=== PATIENT | female | born 1985 | race African-American/Black ===

== ENCOUNTER 2020-10-26 10:25 | Emergency (ER) | payer MEDICAID, OTHER ==
[~2020-10-26] VITALS: Ht 160 cm; Wt 76.0 kg
[2020-10-26 10:30] VITALS: BP 123/78
[2020-10-26 11:28] LABS: CLARITY URINE TURBID (CLEAR); COLOR URINE YELLOW (YELLOW); KETONES URINE 1+ (NEGATIVE); LEUKOCYTE ESTERASE URINE 3+ (NEGATIVE); NITRITE URINE NEGATIVE (NEGATIVE); OCCULT BLOOD URINE 3+ (NEGATIVE); PH URINE 6.5 (4.5-8.0); PROTEIN URINE 1+ (NEGATIVE); SPECIFIC GRAVITY URINE 1.018 (1.005-1.030); UROBILINOGEN URINE 0.2 E.U./dL (0.2-1.0)
[2020-10-26] MEDS ORDERED: AZITHROMYCIN 500 MG TABLET PO NR (13:00)
[2020-10-26] MEDS ORDERED: CEFTRIAXONE SODIUM 500 MG/VIAL IM NR (13:00)
[2020-10-26] MEDS ORDERED: LIDOCAINE HCL 1% 20ML VIAL (Pyxis) INJ INFIL NR (13:00)
[2020-10-26] MEDS ORDERED: CLOT21CR4 VG (13:20)
[2020-10-26] MEDS ORDERED: METR-167 PO (13:20)
[2020-10-30 16:39] LABS: NEISSERIA GONORRHOEAE NAA Negative (Negative)
== END 2020-10-26 13:45 | disposition home or self-care (01) ==
LOC: ER 10:37
DX: N76.0 Acute vaginitis (principal); N72 Inflammatory disease of cervix uteri
CPT/HCPCS: 81003; 81025; 87086; 87210; 87491; 87591; 96372; 99283; J0696; J3490

== ENCOUNTER 2020-11-04 20:00 | Emergency (ER) | payer OTHER ==
[~2020-11-04] VITALS: Ht 157.5 cm; Wt 77.0 kg
[~2020-11-04 20:00] MED LIST: CLOT21CR4 VG; METR-167 PO
[2020-11-04 21:30] VITALS: BP 120/67
== END 2020-11-04 22:27 | disposition home or self-care (01) ==
LOC: ER 20:00
DX: T19.2XXA Foreign body in vulva and vagina, initial encounter (principal); X58.XXXA Exposure to other specified factors, initial encounter
CPT/HCPCS: 99281

== ENCOUNTER 2021-06-27 04:25 | Emergency (ER) | payer MEDICAID, OTHER ==
[~2021-06-27] VITALS: Ht 157.5 cm; Wt 75.0 kg
[2021-06-27 04:35] VITALS: BP 115/74
[2021-06-27 06:08] LABS: CLARITY URINE TURBID (CLEAR); COLOR URINE DARK YELLOW (YELLOW); KETONES URINE TRACE (NEGATIVE); LEUKOCYTE ESTERASE URINE 3+ (NEGATIVE); NITRITE URINE NEGATIVE (NEGATIVE); OCCULT BLOOD URINE 3+ (NEGATIVE); PROTEIN URINE 3+ (NEGATIVE)
[2021-06-27] MEDS ORDERED: SULF1TAB48 MT (06:15)
== END 2021-06-27 06:47 | disposition home or self-care (01) ==
LOC: ER 04:25
DX: N30.90 Cystitis, unspecified without hematuria (principal)
CPT/HCPCS: 81003; 81025; 99283

== ENCOUNTER 2021-07-17 11:34 | Emergency (ER) | payer MEDICAID ==
[~2021-07-17] VITALS: Ht 157.5 cm; Wt 76.0 kg
[~2021-07-17 11:34] MED LIST changes: +SULF1TAB48 MT
[2021-07-17] MEDS ORDERED: SODIUM CHLORIDE 0.9% 1,000 ML IV ONE (12:15)
[2021-07-17 12:30] LABS: BASOPHILS % 0.9 % (0.0-2.0); EOSINOPHILS % 0.4 % (0.0-5.0); HEMATOCRIT. 39.1 % (36.0-48.0); HEMOGLOBIN. 13.4 g/dL (12.0-16.0); LYMPHOCYTES % 29.9 % (20.0-50.0); MEAN CORPUSCULAR HEMOGLOBIN 32.5 pg (28.0-32.0); MEAN CORPUSCULAR VOLUME 95.2 fL (81.0-99.0); MEAN PLATELET VOLUME 10.8 fl (7.4-10.4); MONOCYTES % 6.2 % (2.0-8.0); NEUTROPHILS % 62.6 % (40.0-76.0); PLATELET 214 x1000/uL (130-400); RED BLOOD CELL COUNT 4.11 mill/uL (4.2-5.4); RED CELL DISTRIBUTION WIDTH 12.5 % (11.6-14.6)
[2021-07-17 12:36] LABS: CHLORIDE 104 mEq/L (98-107)
[2021-07-17 12:38] LABS: HCG SCREEN NEGATIVE
[2021-07-17 15:57] VITALS: BP 117/62
== END 2021-07-17 16:27 | disposition home or self-care (01) ==
LOC: ER 11:36
DX: R51.9 Headache, unspecified (principal); H11.31 Conjunctival hemorrhage, right eye; I49.9 Cardiac arrhythmia, unspecified; V49.9XXA Car occupant (driver) (passenger) injured in unspecified traffic accident, initial encounter; Y93.89 Activity, other specified; Y92.89 Other specified places as the place of occurrence of the external cause; Y99.8 Other external cause status
CPT/HCPCS: 36415; 70450; 70486; 71045; 72040; 72170; 80053; 81025; 83690; 84484; 84703; 85025; 93005; 96360; 99285; J7030; Z7610

== ENCOUNTER 2023-10-12 18:34 | Emergency (ER) | payer MEDICAID ==
[~2023-10-12] VITALS: Ht 167.6 cm; Wt 81.0 kg
[2023-10-12 18:53] VITALS: O2SAT 100
[2023-10-12] MEDS ORDERED: BENZ200C52 MT (20:07)
[2023-10-12 21:00] VITALS: BP 116/70; PULSE 68; RESP 18; TEMP 98.4
== END 2023-10-12 21:24 | disposition home or self-care (01) ==
LOC: ER 18:34
DX: J06.9 Acute upper respiratory infection, unspecified (principal)
CPT/HCPCS: 71045; 99283; Z7610

== ENCOUNTER 2024-02-06 13:15 | Emergency (ER) | payer MEDICAID ==
[~2024-02-06] VITALS: Ht 162.6 cm; Wt 81.0 kg
[~2024-02-06 13:15] MED LIST changes: +BENZ200C52 MT
[2024-02-06 13:18] VITALS: BP 122/77; PULSE 86; RESP 18; TEMP 98.5; O2SAT 95
[2024-02-06 13:40] LABS: CLARITY URINE CLEAR (CLEAR); COLOR URINE YELLOW (YELLOW); GLUCOSE URINE NEGATIVE (NEGATIVE); KETONES URINE NEGATIVE (NEGATIVE); LEUKOCYTE ESTERASE URINE 2+ (NEGATIVE); NITRITE URINE NEGATIVE (NEGATIVE); OCCULT BLOOD URINE NEGATIVE (NEGATIVE); PROTEIN URINE TRACE (NEGATIVE); UROBILINOGEN URINE 0.2 E.U./dL (0.2-1.0)
[2024-02-06 13:49] LABS: BACTERIA URINE 2+; RBC URINE 0-2 /hpf (0-2); SQUAMOUS EPITHELIAL CELL URINE 2+ /lpf (RARE/1+); WBC URINE 50-100 /hpf (0-2); YEAST URINE NONE SEEN
[2024-02-06] MEDS ORDERED: PHEN-910 MT (14:04)
[2024-02-06] MEDS ORDERED: NITR100C MT (14:04)
== END 2024-02-06 15:36 | disposition home or self-care (01) ==
LOC: ER 13:15
DX: N39.0 Urinary tract infection, site not specified (principal); R30.0 Dysuria; R30.9 Painful micturition, unspecified; R35.0 Frequency of micturition
CPT/HCPCS: 81003; 81025; 87077; 87186; 99283

== ENCOUNTER 2024-03-06 15:13 | Emergency (ER) | payer MEDICAID ==
[~2024-03-06] VITALS: Ht 165.1 cm; Wt 81.0 kg
[~2024-03-06 15:13] MED LIST changes: +NITR100C MT; +PHEN-910 MT
[2024-03-06 15:27] VITALS: O2SAT 100
[2024-03-06 18:34] LABS: BASOPHILS % 0.8 % (0.0-2.0); HEMATOCRIT. 42.5 % (36.0-48.0); HEMOGLOBIN. 14.4 g/dL (12.0-16.0); LYMPHOCYTES % 22.8 % (20.0-50.0); MEAN CORPUSCULAR HEMOGLOBIN 32.8 pg (28.0-32.0); MEAN CORPUSCULAR HGB CONC 33.8 g/dL (31.0-37.0); MEAN PLATELET VOLUME 10.4 fl (7.4-10.4); MONOCYTES % 5.7 % (2.0-8.0); NEUTROPHILS % 69.7 % (40.0-76.0); PLATELET 235 x1000/uL (130-400); RED BLOOD CELL COUNT 4.39 mill/uL (4.2-5.4); RED CELL DISTRIBUTION WIDTH 13.1 % (11.6-14.6)
[2024-03-06 18:35] LABS: CHLORIDE 105 mEq/L (98-107); POTASSIUM 3.7 mEq/L (3.5-5.1); SODIUM 138 mEq/L (136-145)
[2024-03-06 18:36] LABS: CARBON DIOXIDE 26 mEq/L (21-32)
[2024-03-06 18:37] LABS: CALCIUM 9.5 mg/dL (8.7-10.4)
[2024-03-06 18:41] LABS: CREATININE 0.9 mg/dL (0.6-1.0); GLUCOSE 89 mg/dL (70-105)
[2024-03-06 18:42] LABS: UREA NITROGEN BLOOD 6 mg/dL (9-23)
[2024-03-06 18:43] LABS: ALANINE AMINOTRANSFERASE 16 IU/L (10-49); ALBUMIN 4.6 g/dL (3.2-4.8); ASPARTATE AMINOTRANSFERASE 22 IU/L (<34)
[2024-03-06 18:44] LABS: BILIRUBIN TOTAL 0.7 mg/dL (0.1-1.0); PROTEIN TOTAL 7.8 g/dL (6.0-8.3)
[2024-03-06 19:05] VITALS: BP 133/70; PULSE 77; RESP 18; TEMP 97.8
== END 2024-03-06 19:07 | disposition home or self-care (01) ==
LOC: ER 15:13
DX: F19.10 Other psychoactive substance abuse, uncomplicated (principal); R42 Dizziness and giddiness; Z98.890 Other specified postprocedural states; Z79.899 Other long term (current) drug therapy
CPT/HCPCS: 36415; 80053; 85025; 93005; 99284